=== PATIENT | male | born 1990 | race Caucasian/White ===

== ENCOUNTER 2023-01-16 10:47 | Outpatient (CLI) | payer OTHER, SELFPAY ==
[2023-01-16 19:51] LABS: Basophils Absolute Auto 0.1 K/mm3 (0.0-0.1); Eosinophils Absolute Auto 0.2 K/mm3 (0-0.3); Eosinophils Percent Auto 3.4 % (0-4.4); Hematocrit 46.2 % (42.0-52.0); Hemoglobin 15.1 g/dL (14.0-18.0); Immature Granulocyte Absolute 0.01 K/mm3 (0.00-0.031); Immature Granulocyte Percent A 0.2 % (0-0.5); Lymphocytes Absolute Auto 1.92 K/mm3 (0.9-3.2); Lymphocytes Percent Auto 32.3 % (18.3-44.2); Mean Corpuscular HGB Conc 32.7 g/dl (32-36); Mean Corpuscular Hemoglobin 31.5 pg (26-34); Mean Corpuscular Volume 96.3 fl (80-100); Mean Platelet Volume 10.1 fl (7.4-10.4); Monocytes Absolute Auto 0.6 K/mm3 (0.1-0.6); Monocytes Percent Auto 10.1 % (2.6-8.5); Neutrophils Absolute Auto 3.2 K/mm3 (1.3-6.7); Platelet Count Result 315 k/mm3 (150-375); Red Cell Distribution Width 11.9 % (11.5-14.5); White Blood Count 5.9 K/mm3 (4.5-10.0)
[2023-01-16 20:17] LABS: Alanine Aminotransferase 21 U/L (6-50); Albumin Level 4.6 g/dL (3.5-5.1); Alkaline Phosphatase 42 U/L (38-126); Anion Gap 3 mmol/L (8-16); Aspartate Amino Transferase 34 U/L (17-59); Bilirubin,Total 1.2 mg/dL (0.2-1.3); Blood Urea Nitrogen 16 mg/dL (9-20); Calcium 9.2 mg/dL (8.4-10.2); Carbon Dioxide 34 mmol/L (22-30); Chloride 102 mmol/L (98-107); Cholesterol 213 mg/dL (0-200); Estimated Glomerular Filt Rate > 60; Glucose 84 mg/dL (65-110); HDL Direct 46 mg/dL; Potassium 4.8 mmol/L (3.4-5.0); Sodium 139 mmol/L (137-145)
[2023-01-16 20:18] LABS: LDL Cholesterol Direct 130 mg/dL
[2023-01-16 20:25] LABS: Triglycerides 59 mg/dL (<150)
== END 2023-01-16 10:48 | disposition home or self-care (01) ==
LOC: ANHGOSHLAB 10:48
PROVIDERS: PCP Internal Medicine; Visit Provider Nurse Practitioner
DX: Z13.228 Encounter for screening for other metabolic disorders (principal)
CPT/HCPCS: 36415; 80053; 80061; 85025

== ENCOUNTER 2024-11-21 08:37 | Outpatient (CLI) | payer OTHER, SELFPAY ==
--- OUTSIDE RECORDS SUMMARY | 2024-11-21 08:53 | XMS_ITS | Clinical Summary ---
Author Organization [facility] [employer] Address [address] [place] [address] Phone Care Team Providers Care Drill Setup Operator Name Role Phone Tomasz Mullins DO Primary Care Provider Allergies Active Allergy Reactions Criticality Noted Date Comments [id number] Unknown 2014 Medications Resorcinol-Alcoh ol (RA LOTION) EX LOTN Patient is to apply to affected area BID PRN. 1 Bottle 1 3 Active clindamycin 1 % EX GEL Use daily 60 g 3 3 Active valACYclovir (VALTREX) 1 GM PO TABS Take 1 Tab by mouth 3 times daily. 90 Tab 0 5 Active valACYclovir 1 GM PO TABS Take 1 Tab by mouth 3 times daily. 90 Tab 0 5 Active ondansetron (ZOFRAN-ODT) 4 MG TABLET DISPERSIBLE Take 1 Tab by mouth every 8 hours as needed for Nausea - 1st line. 30 Tab 8 Active valACYclovir (VALTREX) 1 GM Tablet Take 1 Tab by mouth 3 times daily. 90 Tab 9 Active valACYclovir (Valtrex) 1 GM Tablet Take 1 Tablet by mouth 3 times daily. 90 Tablet 4 Active Active Problems Problem Noted Date Diagnosed Date Routine general medical exam ination at a health care facility 05/31/2013 Family History Medical History Relation Name Comments Cancer Maternal Aunt Diabetes Maternal Grandfather Relation Name Status Comments Maternal Aunt Maternal Grandfather Social History Tobacco Use Types Packs/Day Years Used Date Smoking Tobacco: Never Smokeless Tobacco: Never Tobacco Cessation:Counseling Given: Yes Alcohol Use Standard Drinks/Week Comments No 0 (1 standard drink = 0.6 oz pur e alcohol) Sex and Gender Information Value Date Recorded Sex Assigned at Not on file Legal Sex Male 2:50 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 Gender Identity Not on file Sexual Orientation Not on file Last Filed Vital Signs Vital Sign Reading Time Taken Comments Blood Pressure 130/80 10/03/2015 9:45 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 Pulse 68 10/03/2015 9:45 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 Temperature - - Respiratory Rate 16 10/03/2015 9:45 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 Oxygen Saturation - - Inhaled Oxygen Concentration - - Weight 88.2 kg (194 lb 6.4 oz) 10/03/2015 9:45 A M AS400 DEVELOPER Height 185.4 cm (6' 1 ) 10/03/2015 9:45 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 Body Mass Index 25.65 10/03/2015 9:45 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 Plan of Treatment Health Maintenance Due Date Last Done Comments Hepatitis C Virus (HCV) Screening 1992 TdaP Immunization 1992 Hepatitis B Immunization (1 of 3 - 19+ 3-dose series) 2011 Influenza Immunization (#1) 2024 SARS-COV-2 Immunization ( season) 2024 09/30/2021 Respiratory Syncytial Virus (RSV) Immunization (Adult) (1 - 1-dose 75+ series) 2067 Meningococcal Immunization (ACWY) Aged Out No longer eligible based on patient's age to complete this topic Pneumococcal Immunization Combined Aged Out No longer eligible based on patient's age to complete this topic Rotavirus Immunization Aged Out No lo nger eligible based on patient's age to complete this topic Advance Directives * Full Code (Latest Code Status on File) Date Activated Date Inactivated Comments 11/19/2012 3:50 PM Care Teams Drill Setup Operator Relationship Specialty Start Date End Date Tomasz Mullins DO PCP - General Internal Medicine 11/19/12
[2024-11-21 12:58] LABS: Basophils Absolute Auto 0.1 K/mm3 (0.0-0.1); Basophils Percent Auto 0.9 % (0.2-1.2); Eosinophils Absolute Auto 0.2 K/mm3 (0-0.3); Eosinophils Percent Auto 2.9 % (0-4.4); Hematocrit 45.1 % (42.0-52.0); Hemoglobin 15.2 g/dL (14.0-18.0); Immature Granulocyte Absolute 0.01 K/mm3 (0.00-0.031); Immature Granulocyte Percent A 0.2 % (0-0.5); Lymphocytes Absolute Auto 1.71 K/mm3 (0.9-3.2); Lymphocytes Percent Auto 29.1 % (18.3-44.2); Mean Corpuscular HGB Conc 33.7 g/dl (32-36); Mean Corpuscular Hemoglobin 31.7 pg (26-34); Mean Platelet Volume 9.6 fl (7.4-10.4); Monocytes Absolute Auto 0.5 K/mm3 (0.1-0.6); Monocytes Percent Auto 8.9 % (2.6-8.5); Neutrophils Absolute Auto 3.4 K/mm3 (1.3-6.7); Platelet Count Result 329 k/mm3 (150-375); Red Cell Distribution Width 12.1 % (11.5-14.5); White Blood Count 5.9 K/mm3 (4.5-10.0)
[2024-11-21 15:08] LABS: Alanine Aminotransferase 22 U/L (6-50); Albumin Level 4.2 g/dL (3.5-5.1); Alkaline Phosphatase 49 U/L (38-126); Anion Gap 11 mmol/L (4-12); Aspartate Amino Transferase 53 U/L (17-59); Bilirubin,Total 0.7 mg/dL (0.2-1.3); Blood Urea Nitrogen 15 mg/dL (9-20); Calcium 9.2 mg/dL (8.4-10.2); Carbon Dioxide 28 mmol/L (22-30); Chloride 102 mmol/L (98-107); Cholesterol 183 mg/dL (0-200); Estimated Glomerular Filt Rate > 60; Glucose 81 mg/dL (65-110); HDL Direct 44 mg/dL; Potassium 4.1 mmol/L (3.4-5.0); Sodium 141 mmol/L (137-145); Triglycerides 68 mg/dL (<150)
[2024-11-21 15:18] LABS: LDL Cholesterol Direct 110 mg/dL
== END 2024-11-21 08:38 | disposition home or self-care (01) ==
LOC: ANHGOSHLAB 08:38
PROVIDERS: PCP Internal Medicine; Visit Provider Nurse Practitioner
DX: Z13.228 Encounter for screening for other metabolic disorders (principal); Z13.220 Encounter for screening for lipoid disorders
CPT/HCPCS: 36415; 80053; 80061; 85025

== ENCOUNTER 2024-12-29 15:43 | Outpatient (CLI) | payer OTHER, SELFPAY ==
--- OUTSIDE RECORDS SUMMARY | 2024-12-29 15:46 | XMS_ITS | Clinical Summary ---
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 Gender Identity Not on file Sexual Orientation Not on file Last Filed Vital Signs Vital Sign Reading Time Taken Comments Blood Pressure 130/80 10/03/2015 9:45 AM LANGUAGES AND LITERATURE INSTRUCTOR Pulse 68 10/03/2015 9:45 AM LANGUAGES AND LITERATURE INSTRUCTOR Temperature - - Respiratory Rate 16 10/03/2015 9:45 AM LANGUAGES AND LITERATURE INSTRUCTOR Oxygen Saturation - - Inhaled Oxygen Concentration - - Weight 88.2 kg (194 lb 6.4 oz) 10/03/2015 9:45 A M LANGUAGES AND LITERATURE INSTRUCTOR Height 185.4 cm (6' 1 ) 10/03/2015 9:45 AM LANGUAGES AND LITERATURE INSTRUCTOR Body Mass Index 25.65 10/03/2015 9:45 AM LANGUAGES AND LITERATURE INSTRUCTOR Plan of Treatment Health Maintenance Due Date Last Done Comments Hepatitis C Virus (HCV) Screening 1992 TdaP Immunization 1992 Hepatitis B Immunization (1 of 3 - 19+ 3-dose series) 2011 Influenza Immunization (#1) 2024 SARS-COV-2 Immunization (2023- season) 2024 09/30/2021 Respiratory Syncytial Virus (RSV) [...] Inactivated Comments 11/19/2012 3:50 PM Care Teams Radiographic Technologist Relationship Specialty Start Date End Date Tomasz Mullins DO PCP - General Internal Medicine 11/19/12
[2025-01-03 11:55] LABS: NIL 0.02 IU/mL; Quantiferon TB Plus, 1T NEGATIVE (NEGATIVE)
== END 2024-12-29 15:44 | disposition home or self-care (01) ==
LOC: ANHGOSHLAB 15:44
PROVIDERS: PCP Internal Medicine; Visit Provider Nurse Practitioner
DX: Z11.1 Encounter for screening for respiratory tuberculosis (principal)
CPT/HCPCS: 36415; 86480

== ENCOUNTER 2025-01-05 15:54 | Outpatient (CLI) | payer OTHER, SELFPAY ==
--- OUTSIDE RECORDS SUMMARY | 2025-01-05 16:22 | XMS_ITS | Clinical Summary ---
Author Organization [facility] Address [address] [place] [address] Phone Care Team Providers Care Sports Marketing Internship Name Role Phone Tomasz Mullins DO Primary Care Provider Allergies Active Allergy Reactions Criticality Noted Date Comments [id number]-[id number] Unknown 2014 Medications Resorcinol-Alcoh ol (RA LOTION) [...] on file Legal Sex Male 2:50 AM TUB RIDER Gender Identity Not on file Sexual Orientation Not on file Last Filed Vital Signs Vital Sign Reading Time Taken Comments Blood Pressure 130/80 10/03/2015 9:45 AM TUB RIDER Pulse 68 10/03/2015 9:45 AM TUB RIDER Temperature - - Respiratory Rate 16 10/03/2015 9:45 AM TUB RIDER Oxygen Saturation - - Inhaled Oxygen Concentration - - Weight 88.2 kg (194 lb 6.4 oz) 10/03/2015 9:45 A M TUB RIDER Height 185.4 cm (6' 1 ) 10/03/2015 9:45 AM TUB RIDER Body Mass Index 25.65 10/03/2015 9:45 AM TUB RIDER Plan of Treatment Health Maintenance Due Date [...] Inactivated Comments 11/19/2012 3:50 PM Care Teams Sports Marketing Internship Relationship Specialty Start Date End Date Tomasz Mullins DO PCP - General Internal Medicine 11/19/12
[2025-01-09 00:47] LABS: Varicella IgM Antibody 0.38
[2025-01-09 20:34] LABS: Varicella IgG Antibody 9.92 S/CO
== END 2025-01-05 15:55 | disposition home or self-care (01) ==
LOC: ANHGOSHLAB 15:55
PROVIDERS: PCP Internal Medicine; Visit Provider Nurse Practitioner
DX: Z78.9 Other specified health status (principal)
CPT/HCPCS: 36415; 86787